=== PATIENT | male | born 1945 | race Caucasian/White ===

== ENCOUNTER 2022-09-02 07:20 | Day surgery (SDC) | payer MEDICARE, SELFPAY ==
[2022-09-02 07:36] VITALS: BP 173/86; PULSE 90; RESP 17; TEMP 36.6; O2SAT 99
[2022-09-02] MEDS: Tropicam./Phenyleph. (1/2.5%) 5 ML BTL OS ×3 (07:41→07:51)
--- NOTE | 2022-09-02 07:49 | W.ANESPRE ---
General Info Date of Service Date Performed: 09/02/22 Height: 5 ft 5 in Weight: 77.111 kg Body Mass Index (BMI): 28.3 Surgical Procedure: Operation Date: 09/02/22 09:40 Proposed Procedure Side Surgeon p Cataract Extraction with IOL Implant Left Aren Chavarria MD Meds Allergies and Home Medications Allergies Allergy/AdvReac Type Severity Reaction Status Date / Time tamsulosin AdvReac Intermediate Other (See Verified 09/02/22 07:31 Comment) Home Medication Medication Instructions Recorded aspirin 81 mg capsule,delayed 81 mg PO DAILY 08/30/22 release atorvastatin 80 mg tablet 80 mg PO DAILY 08/30/22 glipizide 5 mg tablet, extended 5 mg PO DAILY 08/30/22 release 24 hr insulin glargine U-300 conc 300 20 unit subcut HS 08/30/22 unit/mL (3 mL) subcutaneous pen (Toujeo Max U-300 SoloStar) lisinopril 20 mg tablet 20 mg PO DAILY 08/30/22 metformin 1,000 mg tablet 1,000 mg PO BID 08/30/22 multivitamin 1 tab PO DAILY 08/30/22 tadalafil 5 mg tablet 5 mg PO DIRECTED 08/30/22 Current Visit Medications: Current Medications Generic Name Dose Route Start Last Admin Trade Name Freq PRN Reason Stop Dose Admin Acetaminophen 1,000 mg 09/02/22 06:00 Acetaminophen 500 Mg Tab PO Q4H PRN PRN Miscellaneous Medication 0 ml 09/02/22 06:00 09/02/22 07:46 Tropicam./Phenyleph. (1/2.5%) 5 Ml Btl OS 1 drp DIRECTED SANDIP Administration Miscellaneous Medication 0 ml 09/02/22 06:00 Prednisolone 1%, Moxifloxacin 0.5%, Nepafenac 0.1% 5ml Btl OS DIRECTED SANDIP Tetracaine HCl 0 ml 09/02/22 06:00 Tetracaine 0.5% 4 Ml Btl OS DIRECTED SANDIP PFSH Active Problems Active Problems: Problem Status Onset Code Nuclear age-related cataract, left eye H25.12 Medical History Medical History BPH NOS w ur obs/LUTS Chronic back pain Elevated PSA Erectile dysfunction Fatty liver Gross hematuria HAV (hallux abducto valgus) HLD (hyperlipidemia) HTN (hypertension) IGTN (ingrowing toe nail) Macrocytosis Paresthesia and pain of both upper extremities Pes planus of both feet Retinal detachment Skin lesion Type 2 diabetes mellitus Surgical History Surgical History (Updated 09/02/22 @ 07:32 by Elizabeth Garcia RN) History of hernia surgery Hx of colonoscopy Hx of cystoscopy Tobacco Smoking/Tobacco Use Status: Former Tobacco Use Alcohol Alcohol Intake: current Alcohol intake frequency: a few times a week Alcohol type: wine Substance Use Substance use: Never Substance use type: does not use Vital Signs and Lab Results Vital Signs Most Recent Vital Signs in EMR: Most Recent Vital Signs Temp Pulse Resp BP Pulse Ox 36.6 C 90 17 173/86 H 99 09/02/22 07:36 09/02/22 07:36 09/02/22 07:36 09/02/22 07:36 09/02/22 07:36 Point of Care Results Point of Care Results: Finger Stick Blood Glucose 117 09/02/22 07:36 Lab Results Blood Type / Crossmatch: No Data to Display Complete Blood Count: No Data to Display Complete Metabolic Panel: No Data to Display Liver Function Panel: No Data to Display Coagulation Panel: No Data to Display Cardiac Panel: No Data to Display Arterial Blood Gas: No Data to Display Venous Blood Gas: No Data to Display Pancreas Panel: No Data to Display Thyroid Panel: No Data to Display Infectious Disease: No Data to Display Blood Cultures: No Data to Display Toxicology Panel: No Data to Display Anesthesia Assessment and Plan Anesthesia History Personal History: No History of Anesthesia Complications Family History: No Family History of Anesthesia Complications Exercise Tolerance Exercise Tolerance: Metabolic Equivalents>4 Pertinent Negatives Pertinent Negatives: No Symptoms of GERD Cardiac & Pulmonary Exam Cardiac Exam: Normal S1/S2 Heart Sounds Pulmonary Exam: Clear Bilateral Breath Sounds Implantable Cardiac Device Does patient have a Pacemaker or an ICD?: No Airway Exam Known Difficult Airway: No Mallampati Class: 3 Mouth Opening: Normal (> 3cm) Thyromental Distance: Greater than 3 cm Neck Range of Motion: Full ROM Neck Circumference: Normal Teeth Condition: Normal Dentition ASA Classification ASA Score: ASA 2 Emergency Case?: No NPO Status NPO Status: NPO Clears >2 hours, Solids >8 hours Anesthesia Plan Resuscitation Status: Full Code Anesthesia Technique: MAC Anesthesia Airway Planned: Natural Airway Monitors Used: Standard Monitors Preoperative Comments:: Tyesha AVENDAÑO
[2022-09-02 08:15] VITALS: BMI 28.3
[2022-09-02] MEDS: Tetracaine 0.5% 4 ML BTL OS (09:00)
[2022-09-02] MEDS: Balanced Salt Soln.-PLUS 500 ML BAG (09:01)
[2022-09-02] MEDS: Duovisc Viscoelastic System EACH 1 EACH (09:01)
[2022-09-02] MEDS: Lidocaine 1% Pres-Free 5 ML VIAL (09:01)
[2022-09-02] MEDS: Phenylephrine/Lidocaine (15/10) MG/ML 1 ML VIAL (09:02)
[2022-09-02] MEDS: Povidone-Iodine Ophth 30 ML BTL (09:03)
[2022-09-02 09:30] VITALS: BP 135/77; PULSE 77; RESP 18; TEMP 36.6; O2SAT 96
--- NOTE | 2022-09-02 09:31 | W.PM.DSUDISC ---
Date of service: 09/02/22 Time of Service: 09:31 Discharge Plan Disposition Patient Disposition: Home Discharge Details Attending Provider: Aren Chavarria Primary Care Provider: Venkat Madrid [place] Meds and New Rx's Prescriptions: No Action multivitamin Tablet 1 tab PO DAILY atorvastatin 80 mg Tablet 80 mg PO DAILY lisinopril 20 mg Tablet 20 mg PO DAILY glipizide 5 mg Tablet Extended Release 24hr 5 mg PO DAILY aspirin 81 mg Capsule,Delayed Release(Dr/Ec) 81 mg PO DAILY metformin 1,000 mg Tablet 1,000 mg PO BID tadalafil 5 mg Tablet 5 mg PO DIRECTED Toujeo Max U-300 SoloStar 300 unit/mL (3 mL) Insulin Pen 20 unit SUBCUT HS Discharge Instructions Stand Alone Forms: Post-op Topical Cataract, Lavon Albarran (DSU) Discharge Orders Discharge Orders: Discharge Order (Routine); Ordered 09/02/22 Ordered By: Aren Chavarria DS: Diagnosis Discharge Diagnosis (1) Nuclear age-related cataract, left eye: Status: Resolved (2) Cortical age-related cataract, left eye: Status: Resolved (3) Posterior subcapsular age-related cataract of left eye: Status: Resolved
--- NOTE | 2022-09-02 09:32 | W.PM.OP ---
Date of service: 09/02/22 Time of Service: 09:32 Operative Note Operative Note DATE OF PROCEDURE: 09/02/22 PRE-OP DIAGNOSIS: Nuclear/cortical/posterior subcapsular cataract, left eye POST-OP DIAGNOSIS: same PROCEDURE: Cataract extraction using phacoemulsification with intraocular lens implant, left eye SURGEON: Aren Chavarria ANESTHESIA TYPE: Local By Surgeon and MAC Refer to Anesthesia Record PATHOLOGY: none sent COMPLICATIONS: None Patient was transported to: same day Patient's condition: stable Implants: Caio and Caio Tecnis Eyhance DIB00 Indications: Progressive decreased vision due to cataract, left eye Procedure Description: CATARACT SURGERY OPERATIVE REPORT PREOPERATIVE DIAGNOSIS: 1. Nuclear/cortical/posterior subcapsular cataract, left eye POSTOPERATIVE DIAGNOSIS: Same OPERATION: 1. Cataract extraction using phacoemulsification with posterior chamber intraocular lens implant, left eye. IOL: IOL Bottled Beverage Inspector/Model: Caio & Caio Tecnis Eyhance DIB00 IOL Power: + 19.28 diopters IOL Serial Number: [id number] Optic Diameter: 6.0 mm Haptic/Overall Diameter: 13.0 mm PHACO INFO: Rajeev [employer] Vision System with OZil and Active Fluidics Cumulative Dispersed Energy (CDE): 19.28 seconds SURGEON: Aren Chavarria MD, JUWAN ANESTHESIA: Monitored A [facility] (MAC), with local sub-tenon's anesthetic infiltration COMPLICATIONS: None SPECIMENS: None INDICATIONS FOR PROCEDURE: The patient is a 77-year-old gentleman with history of diminished visual acuity in his left eye secondary to the development of significant nuclear/cortical/posterior subcapsular cataract. He has previously undergone cataract surgery in the right eye, and has also had a retinal detachment in the right eye. He now presents for cataract surgery of the left eye where he has a dense nuclear/cortical/posterior subcapsular cataract. The option of cataract surgery was offered to the patient and he wished to proceed. See office notes for detailed information. PROCEDURE: The correct surgical eye was identified and marked as the left eye and the pupil was dilated in the preoperative area using mydriatics and cycloplegics. The dilated pupil size was 5.5 mm. Oral sedation was administered in the form of an Imprimis MKO Melt (midazolam 3mg/ketamine 25mg/ondansetron 2mg).The patient was brought to the operating room where cardiopulmonary monitoring was instituted and surgical time-out was performed, confirming the correct operative eye and IOL power. Topical anesthesia was administered and ophthalmic povidone-iodine 5% was instilled into the conjunctival fornices. Lidocaine gel was applied to the cornea and the gemini-ocular area was prepped with Betadine 10% solution and draped in the usual sterile fashion for intraocular surgery, including an aperture drape. A Tegaderm transparent film dressing was cut in half and used to cover the lashes and lid margins. Care was taken to sequester the lashes and lid margins under the Tegaderm dressing. A lid speculum was placed between the lids of the operative eye and the Rajeev Lux[employer] Revalia operating microscope was maneuvered into position. Kemi scissors were then used to make a conjunctival buttonhole approximately 6mm posterior to the limbus in the inferonasal quadrant. Blunt dissection was carried out to expose bare sclera, and a blunt-tipped sub-tenon?s anesthesia cannula was introduced and passed posteriorly along the globe where non-preserved plain lidocaine was injected into posterior sub-Tenon?s space. A sideport knife was used to make a paracentesis port superiorly/superiortemporally. Intraocular phenylephrine/lidocaine was injected int the anterior chamber.. The anterior chamber was filled with viscoelastic. A keratome knife was used to construct a 2-plane near-clear corneal tunnel extending 2.0mm into clear cornea temporally. A flap was raised on the anterior capsule and capsulorhexis forceps were used to complete a continuous curvilinear capsulorhexis of 5.0 mm. Balanced salt solution was then used to perform cortical cleaving hydrodissection and nuclear hydrodelineation until the lens could be freely rotated within the capsular bag. The lens nucleus was then disassembled and removed within the capsular bag and iris plane using phacoemulsification. Residual cortical material was removed using the 45-degree angled silicone I/A tip with 0.3mm port. The posterior capsule was carefully polished to remove as much residual lens epithelial cells as safely possible. The capsular bag was then inflated and the anterior chamber deepened with viscoelastic. The lens implant described above was inserted into the capsular bag using the Caio and Caio Simplicity pre-loaded injector. . A Kuglen hook was used to dial the IOL into position. Residual viscoelastic was then removed first from posterior to the IOL, then from the anterior chamber using the I/A handpiece. The lens implant was noted to center nicely within the capsular bag. The incisions were stromally hydrated, and the anterior chamber was reformed using BSS. Then 0.5cc of moxifloxacin 1.0mg/ml were injected into the capsular bag and anterior chamber. The incisions were checked with a Weck spear and found to be secure. Several drops of ophthalmic povidone-iodine 5% were then applied to the eye followed by two drops of Imprimis combination prednisolone/moxifloxacin/nepafenac solution. The drapes were removed and a clear plastic protective eye shield was placed over the eye. The patient was then returned to Same Day Surgery in stable condition.
[2022-09-02 09:51] VITALS: BP 155/77; PULSE 79; RESP 18; TEMP 36.5; O2SAT 96
--- NOTE | 2022-09-02 10:04 | W.ANESPOSTOP ---
Postoperative Evaluation Date, Time and Location Date Performed: 09/02/22 Time Performed: 09:35 Patient Location: Day Surgery Unit Vital Signs Most Recent Imported Vital Signs: Most Recent Vital Signs Temp Pulse Resp BP Pulse Ox 36.5 C 79 18 155/77 H 96 09/02/22 09:51 09/02/22 09:51 09/02/22 09:51 09/02/22 09:51 09/02/22 09:51 Pain Score Most Recent Pain Score: Most Recent Pain Score Pain Level 0 09/02/22 09:51 Assessment Mental Status: Awake (Alert & Oriented to Patient Baseline) Airway and Respiratory Function: Patent airway with normal (patient baseline) respiratory exam Cardiovascular Function: Hemodynamically Stable Hydration Status: Adequately Hydrated Nausea & Vomiting: No Nausea or Vomiting Pain: Pt. Denies Any Pain Peripheral Nerve Block: Patient did not receive a nerve block
== END 2022-09-02 10:00 | disposition home or self-care (01) ==
PROVIDERS: PCP Family Medicine; Visit Provider Ophthalmology
PROC: (CPT 66984; principal; 2022-09-02 09:30)
DX: H25.12 Age-related nuclear cataract, left eye (principal); H25.012 Cortical age-related cataract, left eye; H25.042 Posterior subcapsular polar age-related cataract, left eye; I10 Essential (primary) hypertension; E11.9 Type 2 diabetes mellitus without complications
CPT/HCPCS: 66984; V2632